=== PATIENT | male | born 1960 | race African-American/Black ===

== ENCOUNTER 2017-06-16 08:30 | Emergency (ER) | payer BC ==
[~2017-06-16] VITALS: Ht 182.9 cm; Wt 108.9 kg
[~2017-06-16 08:30] MED LIST: NEXIUM40 MG PO
[2017-06-16] MEDS ORDERED: NORCO 5-325 TA1 EACH PO (09:07)
[2017-06-16 09:50] VITALS: BP 140/79
== END 2017-06-16 09:51 | disposition home or self-care (01) ==
LOC: ER 08:30
DX: M25.512 Pain in left shoulder (principal); M54.12 Radiculopathy, cervical region; M54.6 Pain in thoracic spine

== ENCOUNTER 2017-07-02 19:57 | Emergency (ER) | payer BC ==
[~2017-07-02] VITALS: Ht 182.9 cm; Wt 106.6 kg
[~2017-07-02 19:57] MED LIST changes: +NORCO 5-325 TA1 EACH PO
[2017-07-02 21:55] VITALS: BP 137/89
== END 2017-07-02 21:57 | disposition home or self-care (01) ==
LOC: ER 19:57
DX: S91.312A Laceration without foreign body, left foot, initial encounter (principal); W22.8XXA Striking against or struck by other objects, initial encounter; Y93.01 Activity, walking, marching and hiking; Y92.89 Other specified places as the place of occurrence of the external cause; Y99.8 Other external cause status

== ENCOUNTER → 2017-07-24 | Outpatient (CLI) | payer BC ==
[~2017-07-24] VITALS: Ht 182.9 cm; Wt 105.7 kg
[~2017-07-24] MED LIST changes: +AMITRIPTYLINE H10 M3 PO; +AMITRIPTYLINE H25 M3 PO; +HYDROCODONE-AP1 EA11 PO; +MEDROLDOSEPACK PO; +MOBIC15 MG PO
--- NOTE | ~2017-07-24 | HPC ---
Formerly [facility] [address] [place] [address] PAIN MANAGEMENT CONSULTATION Name: ETHEL ALEXANDER MARYAM Room #: REG ANGELICA Teena#: [id number] Admission: 07/24/17 Attend Phys: Lauro Amin MD Discharge: Date of : 64 Report #: [id number] THIS REPORT FOR: //name// CC: Leighton Amin DATE OF SERVICE: 07/24/2017 CHIEF COMPLAINT: Pain, shooting and throbbing in the left arm, shoulder and hand. HISTORY OF PRESENT ILLNESS: The patient is a 57-year-old gentleman who has been referred to the Pain Clinic for evaluation of left neck and arm pain. He states that his pain has been problematic since about June of this year. He has been experiencing pain, which is shooting, throbbing, constant, rhythmic sharp and aching. He rates his pain as a 15 on a scale of 1-10. He notes that the pain is worse when he is sitting upright or standing. Problematic when he is extending and moving his arm. He feels that is better when he is lying down in bed as well as with use of some medications, which he has taken. Sleep remains somewhat poor. He has been told that he has pressure on the nerves in his neck. He does not recall any specific trauma to this area. He has not had surgery. He has had 1 cervical epidural steroid injections and gleaned 50% benefit. ALLERGIES: No known drug allergies. MEDICATIONS: Hydrocodone 5/325 one p.o. p.r.n. 4-6 hours. PAST MEDICAL HISTORY: Arthritis, back ache, depression. PAST SURGICAL HISTORY: ACL right knee greater than 15 years ago. FAMILY HISTORY: Noncontributory. SOCIAL HISTORY: He is . Works at [employer]. Denies use of tobacco, denies use of alcoholic beverages. REVIEW OF SYSTEMS: Questionnaire in the chart indicates generally good health during a 14-point review of systems: Headaches. Wears glasses. Rectal bleeding/blood in stool. Numbness and tingling sensation with weakness in the left arm and forearm. Depression. PHYSICAL EXAMINATION: Blood pressure 137/91, height 6 feet, weight 233 pounds, BMI is 31. The patient has pain and discomfort in the left neck, left shoulder, left hand, left shoulder blade area. He rates his pain today at this time of the evaluation as a 6/10. He continues to experience shooting, aching, Formerly [facility] [address] [place] [address] PAIN MANAGEMENT CONSULTATION Name: ETHEL ALEXANDER Room #: REG CLI [facility]#: [id number] Admission: 07/24/17 Attend Phys: Lauro Amin MD Discharge: Date of : 64 Report #: [id number] throbbing, sharp pain. Pain is exacerbated with sitting upright as well as standing. It improves somewhat when he lies down or props his arm in a more supported position. Deep tendon reflexes are +1 for biceps, triceps and brachioradialis. Normal bilateral finger abduction and adduction. Complains of pain and decreased sensation in the right forearm area. Has pins and needle sensation in the posterior neck area as well along the left shoulder area. Notes numbness and tingling sensation in the dorsum of left hand. Volunteer Assistant strength is judged to be 5/5. LABORATORY DATA: MRI of the cervical spine dated 06/22/2017 revealed: 1. C3-4, there is a somewhat prominent posterior disk/osteophyte complex at this level. With focal reversal of the normal cervical lordosis. This complex causes central spinal canal stenosis with slight mass effect upon the ventral surface of the spinal cord. It combines with bilateral uncovertebral joint spurring/hypertrophy to cause bilateral neural foraminal stenosis. 2. C4-C5 small posterior disk/osteophyte complex that effaces the ventral thecal surface. There is mild bilateral uncovertebral joint spurring causing mild to moderate bilateral neural foraminal stenosis. 3. C5-C6 mild facet arthrosis. 4. C6-C7, there is mild uncovertebral spurring causing mild bilateral neural foraminal narrowing. 5. C7-T1 bilateral arthrosis of the facets. No central spinal canal stenosis or foraminal narrowing. IMPRESSION: Clinical findings consistent with cervical radiculopathy along the C5-C6 dermatomal distribution. RECOMMENDATIONS: We discussed treatment options with the patient. Risks and benefits of a cervical epidural steroid injection were discussed. The patient feels that at this juncture that he will continue along a conservative approach. He will follow up in the Pain Clinic in the future should he need. We would like to thank you for letting us participate in his care. We hope he continues to improve. By: 0814 1248 Lauro Amin MD /ROLAND
[2017-07-24 13:21] VITALS: BP 149/94
== END | disposition home or self-care (01) ==
LOC: PAIN 07:52
DX: M54.12 Radiculopathy, cervical region (principal); Z68.31 Body mass index [BMI] 31.0-31.9, adult; M19.90 Unspecified osteoarthritis, unspecified site; F32.9 Major depressive disorder, single episode, unspecified; Z79.899 Other long term (current) drug therapy

== ENCOUNTER → 2017-08-12 | Outpatient (CLI) | payer BC ==
[~2017-08-12] VITALS: Ht 182.9 cm; Wt 106.9 kg
--- NOTE | ~2017-08-12 | HPC ---
[facility] [address] [place] [address] PAIN MANAGEMENT CONSULTATION Name: ETHEL ALEXANDER MARYAM Room #: REG ANGELICA RhodesSatya#: [id number] Admission: 08/12/17 Attend Phys: Lauro Amin MD Discharge: Date of : 64 Report #: [id number] THIS REPORT FOR: //name// CC: Leighton Amin DATE OF SERVICE: 08/12/2017 FOLLOWUP COMPLAINT: The pain has worsened on the left side with numbness, tingling and weakness in my left arm. FOLLOWUP HISTORY: The patient is a 57-year-old gentleman who has been seen in the pain clinic because of cervical radiculopathy. He had been experiencing pain over the last few days that has grown significantly worse. It involves his left shoulder. Pain is radiating down into his shoulder and causing pain in his left hand as well. He finds sleep more problematic. He is experiencing numbness, throbbing and shooting discomfort in this area. He finds that working is more problematic. Sitting upright is problematic. Lying down and adding cold packs to the affected area had been somewhat helpful, but temporizing. RECOMMENDATIONS: We discussed the treatment options with the patient. Risks and benefits of a cervical epidural steroid injection were discussed. Possible complications were reviewed. The patient elects to proceed. PROCEDURE NOTE: The patient was placed in the prone position. We had already discussed the possible complications which could include, but are not limited to infection, increased muscle soreness, headache, bleeding, or muscle trauma. His neck had been sterilely prepped. He did complain of pain and discomfort while lying prone on the bed. It was hard for him to hold arm to his side secondary to worsening and increasing pain. A 0.25% bupivacaine was infiltrated. A 17-gauge Tuohy with loss of resistance technique was used to gain access to the epidural space. There was no CSF, heme or paresthesia. A total of 120 mg triamcinolone was injected in the epidural space. The patient remained in the pain clinic for an appropriate amount of time. There were no complications. We would like to thank you for letting us participate in his care. We hope he continues to improve. Total of 36 seconds fluoroscopy time was used. By: 0820 1237 Lauro Amin MD /ROLAND
[2017-08-12 08:18] VITALS: BP 137/91
== END | disposition home or self-care (01) ==
LOC: PAIN 08-07 14:56
DX: M54.12 Radiculopathy, cervical region (principal); M25.511 Pain in right shoulder

== ENCOUNTER → 2017-10-09 | Outpatient (CLI) | payer BC ==
[~2017-10-09] VITALS: Ht 182.9 cm; Wt 108.9 kg
[~2017-10-09] MED LIST changes: +AMITRIPTYLINE H25 M2 PO; +NABUMETONE 750750 M1 PO
--- NOTE | ~2017-10-09 | HPC ---
[facility] [address] [place] [address] PAIN MANAGEMENT CONSULTATION Name: ETHEL ALEXANDER MARYAM Room #: REG Vernell Carlos.#: [id number] Admission: 10/09/17 Attend Phys: Lauro Amin MD Discharge: Date of : 64 Report #: [id number] THIS REPORT FOR: //name// CC: Leighton Amin DATE OF SERVICE: 10/09/2017 FOLLOWUP COMPLAINT: Pain has improved after the last injection with some decreased pain, but I am still having pain down into my left shoulder, left arm and into the hand. FOLLOWUP HISTORY: The patient is a 57-year-old gentleman who has been seen in the pain clinic because of cervical radiculopathy. He continues to have pain and discomfort radiating down to his left shoulder, arm and involving his hand with numbness into to his fingers. He rates his pain and discomfort as 3 in his hand and 6 in the shoulder area. Pain is exacerbated by sitting as well as working. Pain improves when he lies down. Use of cold packs in the neck area can be soothing as well. PHYSICAL EXAMINATION: Blood pressure 134/77, pulse 64, respiratory rate 15, room air saturation 97%. Height 6 feet, weight 240 pounds, BMI is 32. The patient has pain and discomfort in the left arm radiating down to the forearm area and involving the fingers. RECOMMENDATIONS: We discussed treatment options with the patient. Risks and benefits of an epidural steroid injection were explained. They include but are not limited to infection, increased muscle soreness, headache, bleeding, nerve damage and spinal headache. The patient elects to proceed. PROCEDURE NOTE: The patient was placed in the prone position. Fluoroscopy was used to identify the C7-T1 area. This area had been sterilely prepped with Betadine and infiltrated with 0.25% bupivacaine. A total of 120 mg triamcinolone was injected. The patient tolerated the procedure well. There were no complications. He remained in the pain clinic for an appropriate amount of time. He will follow up in the future. A script for amitriptyline was dispensed. We have discussed the reasoning for using amitriptyline which could help with nerve pain. It also can be helpful and efficacious as a sleeping aid. The patient will also try Meloxicam 15 mg 1 p.o. daily. He will call us if he has any problems with his medications. [address] [address] PAIN MANAGEMENT CONSULTATION Name: ETHEL ALEXANDER Room #: REG CLVernell Dickinson#: [id number] Admission: 10/09/17 Attend Phys: Lauro Amin MD Discharge: Date of : 64 Report #: [id number] We would like to thank you for letting us participate in his care. We hope he continues to improve. By: 1641 0513 Lauro Amin MD /PMT
[2017-10-09 08:09] VITALS: BP 134/77
== END | disposition home or self-care (01) ==
LOC: PAIN 06:38
DX: M54.12 Radiculopathy, cervical region (principal); G89.29 Other chronic pain; Z79.891 Long term (current) use of opiate analgesic

== ENCOUNTER → 2017-12-04 | Outpatient (CLI) | payer BC ==
[~2017-12-04] VITALS: Ht 182.9 cm; Wt 111.6 kg
[~2017-12-04] MED LIST changes: +NEURONTIN 300300 M1 PO
--- NOTE | ~2017-12-04 | HPC ---
[facility] [place] [address] [place] [address] PAIN MANAGEMENT CONSULTATION Name: ETHEL ALEXANDER MARYAM Room #: REG ANGELICA Gonzalez.#: [id number] Admission: 12/04/17 Attend Phys: Lauro Amin MD Discharge: Date of : 64 Report #: [id number] THIS REPORT FOR: //name// CC: Leighton Amin DATE OF SERVICE: 12/17/2017 FOLLOWUP COMPLAINT: The pain is still there and I need a disk, which is more ergonomic. FOLLOWUP HISTORY: The patient is a 57-year-old gentleman who has been seen in the pain clinic because of cervical radiculopathy. As you recall, he has undergone cervical epidural steroid injections. He has gleaned benefits from these. He continues to have pain and discomfort, which radiates down into his left arm. He notes that if he is sitting at his desk with his hands in the traditional position. He notes worsening of pain and discomfort in his neck, arm and down into his fingers. He has researched his research some options on the internet. He has seen a desk support, which would place his keyboard in a more ergonomic position. He feels that this would be helpful and lessen the pain and discomfort, which he is experiencing. He would like to have his job provide him that necessary measure. ALLERGIES: No known drug allergies. CURRENT MEDICATIONS: Meloxicam 15 mg daily, hydrocodone 7.5 one p.o. q.4-6h. p.r.n. pain. PAIN CLINIC ASSESSMENT: 1. The patient does not suffer from osteoarthritis. He does not suffer from rheumatoid arthritis. 2. Height 6 feet, weight 246 pounds, BMI is 33.4. 3. Blood pressure 123/74, respiratory rate is 14, pulse is 60, and saturation is 98%. 4.Pain intensity rated as a 6. 5. Fall risk. The patient has not fallen. He has had no problems with ambulation. 6. The patient is not on a blood thinner. 7. The patient is not treated for hypertension. 8. The patient is using opioid medications on a regular basis and has signed an opioid contract with the pain clinic. 9. The patient is at a moderate risk for opioids with a 7/7 risk. 10. Functional assessment 241/70 in regards to general activity, mood, walking ability, working ability, relationships with other people, sleep, and enjoyment of life. [address] [address] PAIN MANAGEMENT CONSULTATION Name: ETHEL ALEXANDER GENOA Room #: REG CLI [facility]#: [id number] Admission: 12/04/17 Attend Phys: Lauro Amin MD Discharge: Date of : 64 Report #: [id number] 11. The patient denies use of recreational drugs. He has never smoked cigarettes. Does not drink alcohol. PHYSICAL EXAMINATION: GENERAL: The patient is a well-developed, well-nourished male with no apparent distress, appears normal, and stated age. Orientation x 3. The patient has fluent speech. Affect is appropriate. HEENT: Normocephalic, atraumatic. Extraocular eye muscles intact. No nasal discharge. Buccal membranes moist. NECK: Without adenopathy or masses. Does have pain and discomfort, which radiates down into his left shoulder, left arm and down into his hand with numbness, tingling and throbbing and some shooting pain, some increased exacerbation of pain with sitting in a work environment with his arms in a traditional position at his desk. Muscle strength is 5/5 for both left and right arm. The patient notes some decreased sensation in the C6-C7 distribution along his dermatomal distribution. Clinical findings of cervical radiculopathy involving the C5-C6 dermatomal distribution with MRI showing C6-C7 mild local vertebral changes causing bilateral neural foraminal stenosis and foraminal narrowing. IMPRESSION: 1. Cervical radiculopathy with pain radiating down in the C5-C6 dermatomal distribution. 2. Need for ergonomic desk. RECOMMENDATIONS: We discussed treatment options with the patient again for about 20 minutes. He provided an item which he feels which would be ergonomic and improve his comfort. We will his company. He will follow up in the future as for additional injections and medications as needed. We would like to thank you for letting us participate in his care. We hope he continues to improve. <ELECTRONICALLY SIGNED> By: Lauro Amin MD 01/20/18 1421 0824 1226 Lauro Amin MD /ROLAND
[2017-12-04 08:14] VITALS: BP 123/74
== END ==
LOC: PAIN 06:54
DX: M54.12 Radiculopathy, cervical region (principal)

== ENCOUNTER → 2018-01-15 | Outpatient (CLI) | payer BC ==
[~2018-01-15] VITALS: Ht 182.9 cm; Wt 110.2 kg
[~2018-01-15] MED LIST changes: +BENTYL 20 MG TA20 M1 PO; +NORCO 7.5-3251 EACH PO; +PEPCID20 MG PO
--- NOTE | ~2018-01-15 | HPC ---
[facility] [address] [place] [address] PAIN MANAGEMENT CONSULTATION Name: BENJAMINETHEL MARYAM Room #: REG JOSEVernell Dickinson#: [id number] Admission: 01/15/18 Attend Phys: Lauro Amin MD Discharge: Date of : 64 Report #: [id number] THIS REPORT FOR: //name// CC: Leighton Amin DATE OF SERVICE: 01/15/2018 CHIEF COMPLAINT: Pain in my neck has gotten worse and I would like to get an injection. FOLLOWUP HISTORY: The patient is a 57-year-old gentleman who has been seen in the pain clinic because of cervical radiculopathy. He has undergone epidural steroid injections in the past and gleaned benefit from these. He has noticed a worsening of his pain and discomfort at this juncture. He would like to proceed with an epidural steroid injection. He has received a modification to his desk. This has been more ergonomic. He has noticed that has improved some of the cervical radicular pain and discomfort, he has been experiencing. He continues to have some numbness and tenderness down into his fingers. There is pain and discomfort in his left shoulder. He rates the pain as a 6/10 with throbbing, tingling, and shooting discomfort down into his right shoulder, right arm, and hand. ALLERGIES: No known drug allergies. CURRENT MEDICATIONS: Reviewed are meloxicam 15 mg 1 p.o. daily, hydrocodone 7.5/325, gabapentin 300 mg t.i.d. PAIN CLINIC ASSESSMENT: 1. The patient is not being treated for osteoarthritis or rheumatoid arthritis. 2. Height 6 feet, weight 243 pounds, BMI is 32. 3. Vital signs: Blood pressure 144/78, pulse 62, respiratory rate 16, room air saturation 96%. 4. Pain intensity 04/18. 5. Fall risk. The patient has not fallen in the last 3 months. 6. The patient is not on a blood thinner. 7. Hypertension. The patient is not being treated for high blood pressure. 8. Opioid therapy. The patient is receiving opioid medications from the pain clinic and has signed a contract. 9. Risk tool assessment, is judged as moderate at 05/15. 10. Functional assessment tool. 11. Recreational drug use. The patient denies ever using recreational drugs. 12. Tobacco: The patient denies use of tobacco. 13. Alcohol. Denies frequent use of alcoholic beverages. [address] [address] PAIN MANAGEMENT CONSULTATION Name: ETHEL ALEXANDER Room #: REG CLI [facility]#: [id number] Admission: 01/15/18 Attend Phys: Lauro Amin MD Discharge: Date of : 64 Report #: [id number] PHYSICAL EXAMINATION: GENERAL: The patient is well-developed black male. Appearance, appears his stated age. Orientation: The patient is alert and oriented x 3. Affect was appropriate. HEENT: Normocephalic, atraumatic. Extraocular eye muscles intact. Hearing within normal limits. The patient is not complaining of sinus problems, has moist buccal membranes. NECK: Without adenopathy or masses. The patient does have some soreness in the right arm with pain radiating down into the right shoulder and into the right hand with numbness, tingling, and weakness. LUNGS: Clear to auscultation. HEART: Regular rate. ABDOMEN: Nontender. MUSCULOSKELETAL: Alignment is normal without scoliosis, kyphosis, or lordosis. Gait is normal. The patient has some discomfort in the right shoulder scapula. Lower extremity muscle strength is judged to be 5/5 with symmetrical musculature without complaint of lumbar radicular symptoms. IMPRESSION: 1. Cervical radiculopathy, which has improved with cervical epidural steroid injection in the past. 2. MRI showing C3-C4 problems with the posterior disk osteophyte complex at this level. There is focal reversal of the normal cervical lordosis. This complex causes central spinal canal stenosis and slight mass effect on the ventral surface of the spinal cord, in combination with bilateral uncovertebral joint spurring/hypertrophy causing bilateral neural foraminal stenosis. 3. C5/C6 small posterior disk osteophyte complex at the face of the ventral surface. There is mild bilateral uncovertebral spurring causing [id number] bilateral neural foraminal stenosis. C5-C6, mild facet arthrosis. 4. C6-C7, there is mild local vertebral pathology causing mild bilateral neural foraminal stenosis, foraminal narrowing. 5. C7/T1 bilateral arthrosis of facets. 6. Clinical findings consistent with cervical radiculopathy along the C5/C6 dermatomal distribution. RECOMMENDATIONS: We discussed treatment options with the patient. At this juncture, we will proceed with another cervical epidural steroid injection. We have discussed the risks and benefits of the procedure, which could include but are not limited to infection, increased muscle soreness, bleeding, headache, nerve damage, spinal headache, worsening of pain, no improvement in pain. The patient feels that the setup at his desk is more efficacious. He is having less pain as a result of the new more ergonomic desk environment. We will proceed today with a cervical epidural steroid injection. The patient will follow up in the future as needed. [facility] [address] [place] [address] PAIN MANAGEMENT CONSULTATION Name: ETHEL ALEXANDER Room #: REG [facility]#: [id number] Admission: 01/15/18 Attend Phys: Lauro Amin MD Discharge: Date of : 64 Report #: [id number] PROCEDURE NOTE: The patient was placed in the prone position. The C7-T1 interspace was sterilely prepped. This area had been infiltrated with 0.25% bupivacaine. Fluoroscopy using the anterior, posterior as well as lateral imaging was used. This area had been sterilely prepped. After the target area was noted, 0.25% bupivacaine was infiltrated. A 17-gauge Tuohy with loss of resistance technique was used to gain access to the epidural space. A total of 120 mg triamcinolone was injected. The patient tolerated the procedure well. There were no complications. His pain decreased from 6 to 3 at the time of discharge. He will follow up in the future as needed. We would like to thank you for letting us participate in his care. We hope he continues to improve. <ELECTRONICALLY SIGNED> By: Lauro Amin MD 02/05/18 0819 1542 0027 Lauro Amin MD /ROLAND
[2018-01-15 08:36] VITALS: BP 144/78
== END | disposition home or self-care (01) ==
LOC: PAIN 07:01
DX: M47.22 Other spondylosis with radiculopathy, cervical region (principal); I10 Essential (primary) hypertension; F11.20 Opioid dependence, uncomplicated; Z79.899 Other long term (current) drug therapy

== ENCOUNTER → 2018-02-19 | Outpatient (CLI) | payer BC ==
[~2018-02-19] VITALS: Ht 182.9 cm; Wt 112.0 kg
[~2018-02-19] MED LIST changes: -BENTYL 20 MG TA20 M1 PO; -NORCO 7.5-3251 EACH PO; -PEPCID20 MG PO
--- NOTE | ~2018-02-19 | HPC ---
[facility] [address] [address] PAIN MANAGEMENT CONSULTATION Name: ETHEL ALEXANDER MARYAM Room #: REG ANGELICA Teena#: [id number] Admission: 02/19/18 Attend Phys: Lauro Amin MD Discharge: Date of : 64 Report #: [id number] THIS REPORT FOR: //name// CC: Leighton Amin DATE OF SERVICE: 02/19/2018 FOLLOWUP COMPLAINT: Return for renewal of medication. Pain did improve after the injection. FOLLOWUP HISTORY: The patient is a 57-year-old gentleman who has been followed in the pain clinic because of cervical radiculopathy. As you recall, he has had pain and discomfort, which is quite problematic. It radiates down into his left shoulder. He has noted some improvement after the cervical epidural steroid injections. He has had a change in ergonomics of his desk at work. He has noticed some improvement now that he has a better ergonomically structure desk. He would like to continue with his current medications. He has noticed that gabapentin continues to be helpful. Finds that hydrocodone is helpful as well. Overall, he still has his days where the pain becomes more problematic than others. He would like to have his medications renewed today. ALLERGIES: No known drug allergies. CURRENT MEDICATIONS: Include Meloxicam 15 mg daily, hydrocodone 10/325 mg one p.o. daily, gabapentin 300 mg t.i.d. PAIN CLINIC ASSESSMENT: 1. The patient does have some arthritic changes in his neck. He has not been treated osteoarthritis. 2. Height 6 feet, weight 247 pounds, BMI is 33. 3. Vital Signs: Blood pressure 134/87. Pulse 63, respiratory rate 15, room air saturation is 98%. Pain intensity 04/18. 4. Fall risk. The patient has not fallen in the last 3 months. 5. Blood thinner. The patient is not on a blood thinner 6. History of hypertension. The patient is not being treated for hypertension. 7. Opioid therapy. The patient is on an opioid therapy contract and receives his medications from only the pain clinic. 8. Risk assessment tool, moderate risk 05/15. 9. Functional assessment tool indicating significant problems during activities of daily living. 10. Recreational drug use. The patient denies use of recreational drugs. 11. Tobacco: The patient denies use of, alcohol or tobacco. 12. Alcoholic beverage, the patient denies use of alcoholic beverages. [facility] [address] [place] [address] PAIN MANAGEMENT CONSULTATION Name: ETHEL ALEXANDER Room #: REG CLVernell Gonzalez#: [id number] Admission: 02/19/18 Attend Phys: Lauro Amin MD Discharge: Date of : 64 Report #: [id number] PHYSICAL EXAMINATION: GENERAL: The patient is a well-developed black male. He appears his stated age. He is alert and oriented x 3. Affect is appropriate. Speech is fluent. HEENT: Normocephalic, atraumatic. Extraocular eye muscles intact. Sclerae is nonicteric. Mucous membranes are moist. Hearing is within normal limits. NECK: Without JVD or adenopathy. HEART: Regular rate. ABDOMEN: Nontender. CHEST: Clear to auscultation without rales or wheezes. MUSCULOSKELETAL: Within normal limits without significant scoliosis, kyphosis or lordosis. Lower extremity strength is judged to be 5/5 for the major muscle groups. Muscle bulk is symmetrical. Able to stand on toes, stand on heels. Left and right lateral bending, left and right lateral rotation, not problematic. No clonus is noted. Upper extremity, the patient has some continued pain and discomfort involving the upper extremity. The left upper extremity is most problematic. Soreness in the area of scapula. Pain radiates down the shoulder involving the right arm with some numbness and tingling into the hands when the pain is problematic. IMPRESSION: 1. MRI showing C3-C4 posterior disk osteophyte complex. There is focal reversal of the normal cervical lordosis, discomfort complex causes central spinal canal stenosis with slight mass effect upon the ventral surface of the spinal cord. In combination with bilateral uncovertebral joint spurring/hyper hypertrophy causing bilateral neural foraminal stenosis. 2. C4/C5 small posterior disk osteophyte complex at the face of the ventral surface. There is mild bilateral uncovertebral spurring causing mild to moderate bilateral neural foraminal stenosis. 3. C5-C6, mild facet arthrosis. 4. C6-C7, there is mild local vertebral swelling causing mild bilateral neural foraminal stenosis and foraminal narrowing. 5. C7/T1 bilateral arthrosis of the facet joints. ASSESSMENT: Cervical findings consistent with cervical radiculopathy involving the C5-C6 dermatomal distribution. RECOMMENDATIONS: We will continue with the patient on a conservative approach at this juncture. We will renew his medications. The patient will continue with Meloxicam 15 mg 1 p.o. daily, gabapentin 300 mg 1 p.o. t.i.d. and hydrocodone 7.5 mg 1 p.o. t.i.d. as needed. We have also spoken with the patient regarding future treatment. The patient does have some problem with pain that continues to be problematic. I think at this juncture be reasonable for him to see a neurosurgeon. At this point, he is not interested in surgery, but I think to have contacted the surgeon to see what his options are at this juncture would be a very reasonable thing. He agrees. We have given in the [facility] [address] [place] [address] PAIN MANAGEMENT CONSULTATION Name: ALEXANDERETHEL VALENCIA RAY Room #: REG [facility] M.R.#: [id number] Admission: 02/19/18 Attend Phys: Lauro Amin MD Discharge: Date of : 64 Report #: [id number] name of Sukhwinder Osei for evaluation in the near future. We would like to thank you for letting us participate in his care. We hope he continues to improve. By: [id number] Lauro Amin MD /ROLAND
[2018-02-19 08:32] VITALS: BP 134/87
== END ==
LOC: PAIN 07:03
DX: M47.23 Other spondylosis with radiculopathy, cervicothoracic region (principal)

== ENCOUNTER 2018-07-20 16:08 | Emergency (ER) | payer BC ==
[~2018-07-20] VITALS: Ht 182.9 cm; Wt 113.4 kg
[2018-07-20] MEDS ORDERED: NORCO 7.5-3251 EACH PO (16:32)
[2018-07-20 16:36] LABS: URINE BILIRUBIN NEGATIVE (Negative); URINE BLOOD NEGATIVE (Negative); URINE CLARITY CLEAR; URINE COLOR YELLOW; URINE GLUCOSE-RANDOM* NEGATIVE (Negative); URINE KETONES NEGATIVE (Negative); URINE LEUKOCYTES-REFLEX NEGATIVE (Negative); URINE NITRITE-REFLEX NEGATIVE (Negative); URINE PROTEIN (DIPSTICK) NEGATIVE (Negative); URINE SPECIFIC GRAVITY >= 1.030 (1.005-1.035); URINE UROBILINOGEN 0.2 E.U./dl (0.2-1.0)
[2018-07-20 16:52] LABS: WBC 7.7 thou/uL (4.0-11.0)
[2018-07-20 16:54] LABS: ABSOLUTE NEUTROPHILS 3.1 thou/uL (1.4-8.2); BASOPHILS 1.2 % (0.0-2.0); EOSINOPHILS 1.3 % (0.0-3.0); HEMATOCRIT 45.5 % (42.0-52.0); HEMOGLOBIN 14.8 gm/dL (14.0-18.0); LYMPHOCYTES 53.3 % (24.0-44.0); MCH 25.2 pg (26.0-34.0); MCHC 32.5 g/dL (28.0-37.0); MCV 77.6 fL (80.0-100.0); MONOCYTES 3.6 % (1.0-8.0); PLATELET COUNT 249 thou/uL (150-400); POLYS 40.6 % (36.0-66.0); RBC 5.87 mil/uL (4.50-6.00); RDW 15.8 % (10.5-14.5)
[2018-07-20 17:01] LABS: POTASSIUM 3.7 mmol/L (3.5-5.1)
[2018-07-20 17:06] LABS: ALBUMIN 3.4 g/dL (3.4-5.0); TOTAL BILIRUBIN 0.5 mg/dL (<0.1-1.0); TOTAL PROTEIN 6.7 g/dL (6.4-8.2)
[2018-07-20] MEDS ORDERED: BENTYL 20 MG TA20 M1 PO (17:47)
[2018-07-20] MEDS ORDERED: PEPCID20 MG PO (17:47)
== END 2018-07-20 18:13 | disposition home or self-care (01) ==
LOC: ER 16:08
PROVIDERS: Physician Assistant
DX: R10.33 Periumbilical pain (principal); K21.9 Gastro-esophageal reflux disease without esophagitis

== ENCOUNTER → 2019-02-04 | Outpatient (CLI) | payer BC ==
[~2019-02-04] VITALS: Ht 182.9 cm; Wt 112.8 kg
[~2019-02-04] MED LIST changes: +BENTYL 20 MG TA20 M1 PO; +NORCO 7.5-3251 EACH PO; +PEPCID20 MG PO
--- NOTE | ~2019-02-04 | HPC ---
[facility] [address] [place] [address] PAIN MANAGEMENT CONSULTATION Name: ETHEL ALEXANDER MARYAM Room #: REG ANGELICA RhodesMichaelHerbertMichael#: [id number] Admission: 02/04/19 ������������������ Attend Phys: Lauro Amin MD Discharge: ������������������ Date of : 64 Report #: [id number] THIS REPORT FOR: //name// CC: Leighton Amin DATE OF SERVICE: 02/04/2019 CHIEF COMPLAINT: Neck pain. HISTORY: The patient is a 58-year-old gentleman who has been seen in the Pain Clinic because of cervical radiculopathy. States that he underwent cervical fusion. He was doing reasonably well. He has now noticed a recurrence of pain and discomfort with pain in his left shoulder radiating down into his elbow and into his wrists. He describes it as 5/10. He is noticing aching, throbbing and tingling sensation. Activities of daily living, such as lifting, turning his head all worsen his discomfort as the day progresses. He continues to try and use nonsteroidal anti-inflammatory medications. He is somewhat disappointed in that he has had surgery and was doing reasonably well and has noted a recurrence of pain and discomfort. ALLERGIES: No known drug allergies. MEDICATIONS: The patient is not taking any medications. PAIN CLINIC ASSESSMENT/PQRS: 1. The patient has some arthritic changes in neck. He has not been treated for rheumatoid arthritis. 2. Height 6 feet 0, weight 247 pounds, BMI is 33.5. 3. Vital signs: Blood pressure 134/87, pulse 63, respiratory rate 15, room air saturation 98%. 4. Pain intensity, 6/10. 5. Fall history. The patient has not fallen. 6. Blood thinner. The patient is not on a blood thinning medication. 7. Hypertension. The patient is not being treated for hypertension. 8. Opioids. The patient is not on an opioid regimen at this juncture. 9. Functional assessment tool, . 10. Recreational drug use. The patient denies use of recreational drugs. 11. Tobacco: The patient has never smoked. 12. Alcohol: The patient denies use of alcoholic beverages. PHYSICAL EXAMINATION: GENERAL: The patient is a well-developed, well-nourished black male, appears his stated age. He is alert and oriented x 3. His affect is appropriate. Speech is fluent. HEENT: Normocephalic, atraumatic. Extraocular eye muscles intact. Sclerae [address] [address] PAIN MANAGEMENT CONSULTATION Name: ETHEL ALEXANDER Room #: REG CLI [facility]#: [id number] Admission: 02/04/19 ������������������ Attend Phys: Lauro Amin MD Discharge: ������������������ Date of : 64 Report #: [id number] nonicteric. Mucous membranes are moist. NECK: Without adenopathy or JVD. He has a well-healed scar in the anterior portion of his neck. He complains of pain and discomfort with discomfort radiating down into his left shoulder blade, elbow and wrist on the left side. HEART: Regular rate. ABDOMEN: Nontender. CHEST: Clear to auscultation without rhonchi or rales. MUSCULOSKELETAL: Upper extremity, left to right, judged to be 5/5 for the major muscle groups and 4/5 on the left side. Lower extremity muscle strength is judged to be 5/5 for the major muscle groups. IMPRESSION: Return of cervical radiculopathy involving the left shoulder and arm area. RECOMMENDATIONS: We discussed treatment options with the patient. At this juncture, I think a conservative approach is reasonable. We will have the patient try a Medrol Dosepak. He will also take Mobic. He will be given Elavil 25 mg to take at bedtime. Hopefully, this will help improve his sleep. Decrease the pain and discomfort he is having and if the patient's pain persists, possibility of a cervical epidural steroid injection is an option. He will call us in about 2 weeks. We would like to thank you for letting us participate in his care. We hope he continues to improve. ��������������������������������������������� ���������������������������������������� By: ��������������������������������������������� [id number] Lauro Amin MD /paris
[2019-02-04 13:57] VITALS: BP 129/85
--- NOTE | 2019-02-04 14:11 | NUR ---
Pain Clinic Assessment: 1. History of Osteoarthritis: NO History of Rheumatoid Arthritis: NO 2. Height: 6 ft. 0 in. 182.9 cm. Weight: 248.6 lb. oz. 112.764 kg. Patient's BMI: 33.7 3. Vital Signs: BP: 129/85 Pulse: 66 Resp: 18 Temp: 02 Sat: 99 ECG Mon: 4. Pain Intensity: 5 5. Fall Risk: Dizziness: N Needs help standing or walking: N Fallen in the last 3 months: N Fall risk comments: 6. Patient on Blood Thinner: None 7. History of Hypertension: N 8. Opioid Therapy greater than 6 weeks: N Opiate Contract Signed: 12/04/17 9. Risk Assessment Tool Provided: MODERATE RISK 05/15 10. Functional Assessment Tool: 11. Recreational Drug Use: Never Drug Type: Tobacco Use: Never Smoker Tobacco Type: Amount or Packs/day: How Many Years: Alcohol Use: No Frequency: Quant:
== END ==
LOC: PAIN 06:51
DX: M54.12 Radiculopathy, cervical region (principal); M25.512 Pain in left shoulder; Z79.899 Other long term (current) drug therapy